=== PATIENT | female | born 1965 | race Caucasian/White ===

== ENCOUNTER 2024-09-05 22:00 | Emergency (ER) | payer OTHER, SELFPAY ==
[2024-09-05 22:04] VITALS: BMI 36.3
[2024-09-05 22:19] VITALS: BP 114/75; PULSE 89; RESP 20; TEMP 36.8; O2SAT 95
--- NOTE | 2024-09-05 23:38 | PD.EDRME ---
Rapid Medical Screening Exam RME Arrival date/time: 09/05/24 22:00 Chief Complaint: Abdominal Pain Time Seen by Provider: 09/05/24 23:10 Vital signs: Vital Signs Temperature 98.2 F 09/05/24 22:19 Pulse Rate 89 09/05/24 22:19 Respiratory Rate 20 09/05/24 22:19 Blood Pressure 114/75 09/05/24 22:19 Pulse Oximetry (%) 95 09/05/24 22:19 Oxygen Delivery Method Room Air 09/05/24 22:19 Vital signs reviewed by provider: Yes RME Narrative: 59-year-old female presents to the ED with complaint of waxing and waning right upper quadrant pain for the past 2 weeks. She indicates that she had a cholecystectomy approximately 30 years ago. She denies fever chills. The pain is exacerbated by eating. She denies any nausea, vomiting, or diarrhea but has had chronic constipation. She has a past medical history of bipolar disorder and dementia as well as a spontaneous splenic rupture which was repaired. Labs, urine, and abdominal ultrasound ordered. I have greeted and performed a focused initial assessment of this patient. A comprehensive ED assessment and evaluation of the patient, analysis of all test results, and completion of the medical decision making process will be conducted by additional ED providers.
[2024-09-06] LABS: Collection Type, Urine Clean Catch
--- NOTE | 2024-09-06 | XR_ITS ---
Examination: Abdomen sonogram, complete Date and time of exam: September 06, 2024, 0015 hours INDICATIONS: Right upper abdominal pain beginning one week ago. Technique: Multiple real-time grayscale transabdominal sonographic images of the abdomen have been obtained. Findings: Absent gallbladder Common bile duct 0.9 cm no stones Pancreas obscured by bowel gas Aorta not enlarged Hepatomegaly 20.8 cm with lobular contour fatty infiltration Normal hepatopedal portal venous flow Patent IVC Right kidney 9.8 cm cortex is 1.8 cm Kidney 9.1 cm cortically foreign 0.8 cm Moderate renal parenchymal scar formation Spleen 10.7 cm IMPRESSION: Absent gallbladder. Enlarged common bile duct 0.9 cm, clinical correlation advised, if biliary colic is a clinical consideration, suggest MRCP follow-up
[2024-09-06 00:02] LABS: Basophils % (Auto) 0 % (0-2.5); Eosinophils % (Auto) 0 % (0-10); Hematocrit 45.3 % (36.0-46.0); Hemoglobin 15.2 g/dL (12.0-16.0); Immature Granulocytes % (Auto) 1 % (0-0); Lymphocytes # (Auto) 0.3 Thou/mm3 (1.0-4.8); Lymphocytes % (Auto) 1 % (10-50); Mean Corpuscular HGB Conc 33.6 g/dl (31.0-37.0); Mean Corpuscular Hemoglobin 31.4 pg (25.0-35.0); Mean Corpuscular Volume 94 fL (80-100); Monocytes # (Auto) 0.6 Thou/mm3 (0.0-0.8); Monocytes % (Auto) 3 % (0-12); Neutrophils # (Auto) 21.1 Thou/mm3 (1.8-7.7); Neutrophils % (Auto) 95 % (37-80); Nucleated Red Blood Cell % 0 /100 WBC (0); Platelet Count 404 Thou/mm3 (140-440); RDW Standard Deviation 50.8 fL (36.4-46.3); Red Blood Count 4.84 Miln/mm3 (4.00-5.20); White Blood Count 22.2 Thou/mm3 (3.6-11.0)
[2024-09-06 00:21] LABS: Amorphous Crystals,Urine Present (Absent); Bacteria,Urine 4+; Bilirubin,Urine 1+ (Negative); Blood,Urine Negative (Negative); Calcium Oxalate Crystals,Urine 1+; Color,Urine Drk-Yellow (Lt Yel-Yel); Glucose, Urine Negative (Negative); Hyaline Casts,Urine < 1 /hpf (0-1); Ketones,Urine Trace (Negative); Leukocyte Esterase,Urine Positive (Negative); Nitrite,Urine Negative (Negative); PH,Urine 7.5 (5.0-7.0); Protein,Urine 1+ (Neg - Trace); RBC,Urine 9 /hpf (0-3); Specific Gravity,Urine 1.024 (1.001-1.035); Squamous Epithelial Cell,Urine 10 /hpf (0-5); Urobilinogen,Urine 12 mg/dL (0.0-1.0); WBC,Urine 12 /hpf (0-5)
[2024-09-06 00:24] LABS: Clarity,Urine Turbid (Clear/Hazy)
[2024-09-06 00:28] LABS: Alanine Aminotransferase 338 U/L (10-49); Albumin, Serum 4.7 gm/dL (3.4-4.8); Albumin/Globulin Ratio 1.6 (1.2-2.2); Alkaline Phosphatase 558 U/L (46-116); Amylase 34 U/L (30-118); Anion Gap 10 (7-16); Aspartate Amino Transferase 691 U/L (0-34); BUN/Creatinine Ratio 16 Ratio (12-20); Bilirubin,Total 3.1 mg/dL (0.3-1.2); Blood Urea Nitrogen 14 mg/dL (9-23); Calcium 9.5 mg/dL (8.3-10.6); Calcium (Corrected) 9.5 mg/dL (8.5-10.1); Carbon Dioxide 31.2 mMol/L (20.0-31.0); Chloride 101 mMol/L (98-107); Creatinine (Component) 0.9 mg/dL (0.6-1.3); Estimated Creatinine Clearance 68.6 mL/min (>60); Globulin 2.9 gm/dL (2.3-3.5); Glucose 176 mg/dL (74-106); Lipase 51 U/L (12-53); Osmolality,Calculated 287 (275-295); Sodium 142 mMol/L (136-145); Total Protein 7.6 gm/dL (5.7-8.2); eGFR > 60 See Note
[2024-09-06 01:24] VITALS: BP 147/86; PULSE 87; RESP 19; TEMP 36.7; O2SAT 95
--- NOTE | 2024-09-06 01:24 | XR_ITS ---
Examination: CT abdomen with intravenous contrast CT pelvis with intravenous contrast 2-D coronal reconstructions 2-D sagittal reconstructions Date and time of exam:September 06, 2024 0227 hours INDICATIONS: Sepsis alert. CTDI: vol (mGy) 13 DLP: (mGycm) 731 Technique: Multiple axial sections of the abdomen and pelvis have been obtained. 64 slice high-resolution scanner used. 3 mm axial sections have been obtained, post intravenous injection 60 cc Isovue 370 2-D sagittal, coronal reconstructions obtained. Low dose protocols were performed. One or more of the following dose reduction techniques were used; automated exposure control, adjustment of the mA and/or KV according to patient size, use of iterative reconstruction technique. Findings: Intrahepatic biliary tract dilatation Absent gallbladder Enlarged common hepatic duct at least 18 mm, suspicious for stones in the distal common bile duct No hydronephrosis No bowel obstruction Normal appendix Urinary bladder intact The osseous structures are intact IMPRESSION: Abnormal extrahepatic biliary tract dilatation, recommend MRCP follow-up to exclude stones in the distal common bile duct
--- NOTE | 2024-09-06 01:25 | PD.EDABDPN ---
ED Abdominal Pain RME/HPI General Chief Complaint: Abdominal Pain Stated complaint: RIGHT UPPER ABD PAIN FOR A COUPLE WEEKS Time seen by provider: 09/05/24 23:10 Arrival date/time: 09/05/24 22:00 RME / HPI RME / HPI narrative: 59-year-old female presents to the ED with complaint of waxing and waning right upper quadrant pain for the past 2 weeks. She indicates that she had a cholecystectomy approximately 30 years ago. She denies fever chills. The pain is exacerbated by eating. She denies any nausea, vomiting, or diarrhea but has had chronic constipation. She has a past medical history of bipolar disorder and dementia as well as a spontaneous splenic rupture which was repaired. Labs, urine, and abdominal ultrasound ordered. I have greeted and performed a focused initial assessment of this patient. A comprehensive ED assessment and evaluation of the patient, analysis of all test results, and completion of the medical decision making process will be conducted by additional ED providers. DR. HERNANDEZ MAIN ED EVALUATION: 59 y/o female with Hx of Gall Bladder Disease presents to ED c/o RUQ abdominal pain x 2 weeks. Patient denies fever, chills, nausea, vomiting, diarrhea, constipation, or any other associated symptoms or aggravating factors. No modifying factors, no radiation, no migration. No other pain reported overall. Related Data Home Medications ?Medication ?Instructions ?Recorded ?Confirmed lamotrigine 200 mg tablet 200 mg PO BID #0 tabs 09/13/15 10/19/23 (Lamictal) oxybutynin chloride 5 mg tablet 5 mg PO QDAY #0 tabs 09/13/15 10/19/23 olanzapine 15 mg-samidorphan 10 mg 1 tab PO HS 05/10/21 10/19/23 tablet (Lybalvi) levothyroxine 88 mcg tablet 88 mcg PO QDAY 05/12/21 10/19/23 gabapentin 300 mg capsule 300 mg PO BID 08/08/21 10/19/23 gabapentin 300 mg capsule 600 mg PO HS 08/08/21 10/19/23 memantine 5 mg tablet 5 mg PO BID 10/03/23 10/19/23 pramipexole 1.5 mg tablet,extended 1.5 mg PO QDAY 10/03/23 10/19/23 release 24 hr furosemide 20 mg tablet (Lasix) 20 mg PO DAILY 10/19/23 10/19/23 potassium chloride 10 mEq 10 meq PO DAILY 10/19/23 10/19/23 tablet,extended release (Klor-Con) Allergies Allergy/AdvReac Type Severity Reaction Status Date / Time No Known Allergies Allergy Verified 09/05/24 22:04 Review of Systems Review of Systems Systems Reviewed: All systems reviewed, normal except as documented Narrative Review of Systems: Gen: No fever, no chills, no weight loss EYES: No discharge, no visual changes, no pain HEENT: No ear pain, no congestion, no sore throat PULM: No shortness of breath, no cough, no congestion CV: No chest pain, no dyspnea on exertion, no palpitations GI: No nausea, no vomiting, no diarrhea, RUQ pain, no constipation : No frequency, no urgency, no dysuria Musc/skel: No joint pain, no back pain Skin: No rash. Psyc: No hallucinations, no depression Heme/Lymph: No easy bleeding or bruising tendencies Neuro: No weakness, no headache Past Medical History Past Medical History CARDIAC: Positive Edema and Hypertension RESPIRATORY: Positive Asthma and Bronchitis GASTROINTESTINAL: Positive Gastrointestinal Disorders, Gall Bladder Disease and Obesity ENDOCRINE: Positive Hypothyroidism PSYCHO/SOCIAL: Positive Schizophrenia, Bipolar Disorder and Anxiety Family History FAMILY HISTORY: Positive Family Cardiac Disorders Surgical History SURGICAL: Positive Angiogram (COMING SOON), Eye Surgery (CATARACTS), Abdominal Surgery, Joint Replacement and Hysterectomy ED Exam Narrative Physical exam: GENERAL APPEARANCE: alert and oriented x 4, well-developed, well-nourished, no acute distress VITALS: All vitals were reviewed and the pulse ox is 95% on room air, which is normal according to my interpretation. HEENT: Normocephalic, atraumatic; pupils equal, round, reactive to light; EOMI; mucous membranes pink, moist; oropharynx clear NECK: Supple LUNGS: CTABL; no wheezes, no rales, no rhonchi HEART: Regular rate, regular rhythm; normal S1, S2; no murmurs ABDOMEN: non distended; normal BS; soft, RUQ tenderness, no guarding, no rebound; no masses, no organomegaly, no hernia BACK: no CVA tenderness EXTREMITIES: atraumatic; no edema NEUROLOGIC: awake; alert and oriented x4; cranial nerves II-XII grossly intact; no focal sensory or motor deficits PSYCHIATRIC: appropriate mood and affect SKIN: warm, dry, normal color; no rashes Course Course Course Narrative: 0122: Zosyn ordered. 0124: CT Abdomen/Pelvis with Contrast Sepsis Protocol. 0223: MRCP ordered. 0224: MRI ordered. Quality Measures none Orders Category Date Time Status CT Screening NOW Care 09/06/24 01:24 Active MRI Screening NOW Care 09/06/24 02:24 Active NPO STAT Care 09/05/24 23:[address] abd pel w con SEPSIS SONIA Stat Exams 09/06/24 01:24 Taken MR MRCP Stat Exams 09/06/24 Ordered US abdomen Stat Exams 09/06/24 00:00 Taken Amylase Stat Lab 09/05/24 23:53 Completed Blood Culture (Lab) Stat Lab 09/06/24 04:05 Ordered CBC Stat Lab 09/05/24 23:53 Completed Comprehensive Metabolic Panel Stat Lab 09/05/24 23:53 Completed Lactate (Lactic Acid) Stat Lab 09/06/24 04:05 Ordered Lipase Stat Lab 09/05/24 23:53 Completed Procalcitonin Stat Lab 09/06/24 04:05 Ordered Urinalysis Stat Lab 09/05/24 23:50 Completed Piper/Tazo Inj [Zosyn Inj] 3.375 gm Med 09/06/24 01:30 Discontinued SODIUM CHLORIDE 0.9% (Popper) [Ns 0.9% (P)] 50 ml IV X1 Sodium Chloride 0.9% 1000 ml [Ns] 1,000 ml Med 09/06/24 01:23 Discontinued IV 999 mls/hr Vital Signs Vital signs: Vital Signs Temperature 98.2 F 09/05/24 22:19 Pulse Rate 89 09/05/24 22:19 Respiratory Rate 20 09/05/24 22:19 Blood Pressure 114/75 09/05/24 22:19 Pulse Oximetry (%) 95 09/05/24 22:19 Oxygen Delivery Method Room Air 09/05/24 22:19 Abdominal Pain MDM MDM Narrative MDM Narrative:: Scribe Attestation: I, Kassandra Mcadams, am scribing for and in the presence of Dr. Hernandez. Provider Notation: Although this document has been carefully reviewed, there may still be some phonetic and other typographical errors. These errors are purely grammatical due to imperfections in the software program and should not be construed in any way to compromise the substance of the patient's medical care during this visit 0600: Care assumed by Dr. Bill (emergency physician). Past medical, surgical, social and family history reviewed. Vitals and home medications reviewed. Results and treatment plan discussed. They will assume the care of the patient at this time and will follow the patient, pending MRCP. Patient data External records reviewed:: [facility] previous records Clinical information provided by:: patient Social determinants that could affect healthcare access:: none Patient has the following chronic illnesses:: Edema, Hypertension, Asthma, Bronchitis, Gall Bladder Disease, Obesity, Hypothyroidism, Schizophrenia, Bipolar Disorder and Anxiety. How is presenting disease/condition affected by chronic disease/condition?: exacerbated by Evaluation data The following diagnostics were reviewed and interpreted by me:: lab results (AST 691 U/L, Urine bacteria 4+, Amorphous crystals present, Calcium oxalate crystal 1+, Urine WBC 12/hpf, Urine RBC 9/hpf, Urine Squamous Epithelial cells 10/hpf) and radiology exam(s) Lab and/or radiology exams considered but not ordered:: None. Interpretation Summary: RADIOLOGY I have personally reviewed the results below. Additionally, I agree with the radiologist's interpretation. Abdomen/Pelvis CT: Pending official radiology report. Abdomen US: Pending official radiology report. Medications / Prescriptions Medications or Prescriptions considered but not ordered:: None. Medication administrations:: Medication Administration History Discontinued Medications Piperacillin Sod/Tazobactam (Sod 3.375 gm/ Sodium Chloride) 50 mls @ 100 mls/hr IV X1 ONE Stop: 09/06/24 01:59 Last Infusion: 09/06/24 03:21 Dose: Infused Documented By: Admin: 09/06/24 02:15 Dose: 100 mls/hr Documented By: EE Sodium Chloride (Ns) 1,000 mls @ 999 mls/hr IV .Q1H1M ONE Stop: 09/06/24 02:23 Last Infusion: 09/06/24 04:53 Dose: Infused Documented By: Admin: 09/06/24 02:16 Dose: 999 mls/hr Documented By: NARCISA See above if any. Consultations Consultation(s) initiated? (list below): No Diagnosis Differential diagnosis abdominal pain: abdominal pain, acute appendicitis, constipation, diverticulitis, gastroenteritis, pancreatitis and other (UTI) Most likely diagnosis given after review of the tests above:: Transaminitis, Leukocytosis, Dilated common bile duct. Admission Indicated Admission indicated?: not indicated (Pending final disposition.) Explain why admission is indicated or not indicated:: Pending MRCP. Admission Request Was there a request for admission?: No Disposition Plan Disposition Plan: other (specify) (Disposition pending oncoming provider.) Discharge Plan Prescriptions/Referrals Prescriptions/Med Rec: No Action lamotrigine [Lamictal] 200 MG tablet 200 mg PO BID Qty: 0 oxybutynin chloride 5 MG tablet 5 mg PO QDAY Qty: 0 Lybalvi 15-10 mg Tablet 1 tab PO HS levothyroxine 88 mcg Tablet 88 mcg PO QDAY gabapentin 300 mg Capsule 600 mg PO HS Rx Instructions: 1 capsule in morning, then 1 capsule in afternoon, then 2 at night gabapentin 300 mg Capsule 300 mg PO BID Rx Instructions: 1 in the morning and 1 in the afternoon, then 2 at night potassium chloride [Klor-Con 10] 10 mEq tablet extended release 10 meq PO DAILY Patient Comments: TAKE 1 TABLET BY MOUTH EVERY DAY WITH FOOD furosemide [Lasix] 20 mg tablet 20 mg PO DAILY Patient Comments: TAKE 1 TABLET BY MOUTH EVERY DAY memantine 5 mg Tablet 5 mg PO BID pramipexole 1.5 mg Tablet Extended Release 24 Hr 1.5 mg PO QDAY Referrals: Sandra Hutchison, [facility] [Primary Care Provider] - In 1 week Problem List Clinical Impression: Transaminitis, Common bile duct dilation, Leukocytosis Patient/Caregiver Discharge Instructions Print Language: Azeri
[2024-09-06] MEDS: PIPER/TAZO INJ 3.375 GM in SODIUM CHLORIDE 0.9% (Popper) 50 ML IV (02:15)
[2024-09-06] MEDS: SODIUM CHLORIDE 0.9% 1000 ML 1,000 ML 999 ML IV (02:16)
--- NOTE | 2024-09-06 02:18 | PRELIM_ITS ---
Ultrasound Abdomen with doppler and wave doppler spectral analysis. September 06, 2024 at 0015 hours Clinical history: Right upper quadrant abdominal pain. Technique: Grayscale and color flow images of the abdomen are provided. Hepatic and portal veins were also imaged with color flow images. Comparison: Compared with the prior ultrasound study dated September 06, 2024. Findings: The liver is enlarged and demonstrates increased echogenicity. No intrahepatic biliary ductal dilatation. The gallbladder is not visualized. The common bile duct is dilated in caliber at 9.3 mm. No free fluid is demonstrated on the submitted images. The pancreas is unremarkable to the extent visualized. The right kidney measures 9.8 cm. The left kidney measures 9.1 cm. There is no hydronephrosis and the corticomedullary differentiation is maintained. The spleen is normal measuring 10.7 cm in length. The abdominal aorta and inferior vena cava to the extent visualized are within normal limits. The portal vein is patent with hepatopetal flow with normal wave Doppler spectral analysis. Impression: 1. The gallbladder is not visualized, surgically absent versus contracted. Please, correlate clinically. 2. Dilated CBD, if choledocholithiasis is clinically suspected consider correlation with MRCP. 3. Hepatomegaly associated with liver steatosis is suspicious for steatohepatitis. Report Electronically Signed By: Arnie Mae 09/06/2024 2:17:58 AM [EST]
[2024-09-06 03:00] VITALS: BP 152/85; PULSE 87; RESP 16; TEMP 37; O2SAT 96
--- NOTE | 2024-09-06 03:51 | PRELIM_ITS ---
CT scan of the abdomen and pelvis with intravenous contrast (axial sections with sagittal and coronal reformats) September 06, 2024 0222 hours Clinical History: RUQ abdominal pain Comparison: Reference is made to the prior report dated 10/19/2023. Findings: There is heterogeneous attenuation of the lung bases. There is fatty infiltration of liver with mild hepatomegaly .The pancreas, spleen and adrenals are unremarkable. Gallbladder is surgically absent. The common bile duct is dilated measuring 1.8 cm. There is ill-defined hyperdensity measuring 8 mm in the distal CBD. No evidence of radiodense calculus within the common bile duct. There is perisplenic collection measuring 4.7 cm . There is bilateral renal cortical scarring. No evidence of bowel obstruction. A moderate amount of fecal material is present in the colon. The appendix is within normal limits (coronal image # [id number]) . There is no mesenteric or retroperitoneal adenopathy. The aorta and its branches demonstrate atheromatous calcification without evidence of aneurysm. The urinary bladder is unremarkable. There is no free fluid or free air.Degenerative changes are identified in the spine. There are posterior operative changes in the spinous processes at L2-L3 and L3-L4 levels. Impression: Dilated common bile duct with distal intraluminal ill-defined hyperdensity, recommend MRCP for further evaluation as clinically indicated. Fatty infiltration of liver with mild hepatomegaly. Constipation . Other findings as described above. Report Electronically Signed By: Walter Lemus 09/06/2024 3:50:47 AM [EST]
[2024-09-06 06:17] VITALS: BP 157/92; PULSE 75; RESP 16; TEMP 36.7; O2SAT 95
--- NOTE | 2024-09-06 06:44 | EDNOTE_ITS ---
Emergency Room Addendum <Yvette Encinas - Last Filed: 09/06/24 12:03> Addendum Narrative: 0600: Care assumed from Dr. Hernandez (emergency physician). Past medical, surgical, social and family history reviewed. Vitals and home medications reviewed. Results and treatment plan discussed. I will assume the care of the patient at this time and will follow the patient, pending CT, US, and MRCP results. 0920: I spoke with the Transfer Nurse, transfer process initiated. MRCP is unavailable at current hospital and transfer is needed to complete MRCP. RADIOLOGY: Ordering Physician: Date of Service: Procedure(s): Accession Number(s): cc: ~ Ultrasound Abdomen with doppler and wave doppler spectral analysis. September 06, 2024 at 0015 hours Clinical history: Right upper quadrant abdominal pain. Technique: Grayscale and color flow images of the abdomen are provided. Hepatic and portal veins were also imaged with color flow images. Comparison: Compared with the prior ultrasound study dated September 06, 2024. Findings: The liver is enlarged and demonstrates increased echogenicity. No intrahepatic biliary ductal dilatation. The gallbladder is not visualized. The common bile duct is dilated in caliber at 9.3 mm. No free fluid is demonstrated on the submitted images. The pancreas is unremarkable to the extent visualized. The right kidney measures 9.8 cm. The left kidney measures 9.1 cm. There is no hydronephrosis and the corticomedullary differentiation is maintained. The spleen is normal measuring 10.7 cm in length. The abdominal aorta and inferior vena cava to the extent visualized are within normal limits. The portal vein is patent with hepatopetal flow with normal wave Doppler spectral analysis. Impression: 1. The gallbladder is not visualized, surgically absent versus contracted. Please, correlate clinically. 2. Dilated CBD, if choledocholithiasis is clinically suspected consider correlation with MRCP. 3. Hepatomegaly associated with liver steatosis is suspicious for steatohepatitis. Report Electronically Signed By: Arnie Mae 09/06/2024 2:17:58 AM [EST] ========= Ordering Physician: Date of Service: Procedure(s): Accession Number(s): cc: ~ CT scan of the abdomen and pelvis with intravenous contrast (axial sections with sagittal and coronal reformats) September 06, 2024 0222 hours Clinical History: RUQ abdominal pain Comparison: Reference is made to the prior report dated 10/19/2023. Findings: There is heterogeneous attenuation of the lung bases. There is fatty infiltration of liver with mild hepatomegaly .The pancreas, spleen and adrenals are unremarkable. Gallbladder is surgically absent. The common bile duct is dilated measuring 1.8 cm. There is ill-defined hyperdensity measuring 8 mm in the distal CBD. No evidence of radiodense calculus within the common bile duct. There is perisplenic collection measuring 4.7 cm . There is bilateral renal cortical scarring. No evidence of bowel obstruction. A moderate amount of fecal material is present in the colon. The appendix is within normal limits (coronal image # [id number]) . There is no mesenteric or retroperitoneal adenopathy. The aorta and its branches demonstrate atheromatous calcification without evidence of aneurysm. The urinary bladder is unremarkable. There is no free fluid or free air.Degenerative changes are identified in the spine. There are posterior operative changes in the spinous processes at L2-L3 and L3-L4 levels. Impression: Dilated common bile duct with distal intraluminal ill-defined hyperdensity, recommend MRCP for further evaluation as clinically indicated. Fatty infiltration of liver with mild hepatomegaly. Constipation . Other findings as described above. Report Electronically Signed By: Walter Lemus 09/06/2024 3:50:47 AM [EST] <Shamikathelma Franco - Last Filed: 09/06/24 11:58> Addendum Narrative: 0600: Care assumed from Dr. Hernandez (emergency physician). Past medical, surgical, social and family history reviewed. Vitals and home medications reviewed. Results and treatment plan discussed. I will assume the care of the patient at this time and will follow the patient, pending CT, US, and MRCP results. 0920: I spoke with the Transfer Nurse, transfer process initiated. MRCP is unavailable at current hospital and transfer is needed to complete MRCP. 1138: Transfer nurse from [facility] called that GI specialist Dr. Silverio is not available right now but will call soon. 1149: Discussed test HPI, PMHx, lab, radiology results and/or management with GI specialist Dr. Silverio From [facility]. GI specialist Dr. Silverio accepts the patient for transfer. Diagnoses: - Common bile duct dilation - Transaminitis - Leukocytosis - Cholangitis RADIOLOGY: Ordering Physician: Date of Service: Procedure(s): Accession Number(s): cc: ~ Ultrasound Abdomen with doppler and wave doppler spectral analysis. September 06, 2024 at 0015 hours Clinical history: Right upper quadrant abdominal pain. Technique: Grayscale and color flow images of the abdomen are provided. Hepatic and portal veins were also imaged with color flow images. Comparison: Compared with the prior ultrasound study dated September 06, 2024. Findings: The liver is enlarged and demonstrates increased echogenicity. No intrahepatic biliary ductal dilatation. The gallbladder is not visualized. The common bile duct is dilated in caliber at 9.3 mm. No free fluid is demonstrated on the submitted images. The pancreas is unremarkable to the extent visualized. The right kidney measures 9.8 cm. The left kidney measures 9.1 cm. There is no hydronephrosis and the corticomedullary differentiation is maintained. The spleen is normal measuring 10.7 cm in length. The abdominal aorta and inferior vena cava to the extent visualized are within normal limits. The portal vein is patent with hepatopetal flow with normal wave Doppler spectral analysis. Impression: 1. The gallbladder is not visualized, surgically absent versus contracted. Please, correlate clinically. 2. Dilated CBD, if choledocholithiasis is clinically suspected consider correlation with MRCP. 3. Hepatomegaly associated with liver steatosis is suspicious for steatohepatitis. Report Electronically Signed By: Arnie Mae 09/06/2024 2:17:58 AM [EST] Ordering Physician: Date of Service: Procedure(s): Accession Number(s): cc: ~ CT scan of the abdomen and pelvis with intravenous contrast (axial sections with sagittal and coronal reformats) September 06, 2024 0222 hours Clinical History: RUQ abdominal pain Comparison: Reference is made to the prior report dated 10/19/2023. Findings: There is heterogeneous attenuation of the lung bases. There is fatty infiltration of liver with mild hepatomegaly .The pancreas, spleen and adrenals are unremarkable. Gallbladder is surgically absent. The common bile duct is dilated measuring 1.8 cm. There is ill-defined hyperdensity measuring 8 mm in the distal CBD. No evidence of radiodense calculus within the common bile duct. There is perisplenic collection measuring 4.7 cm . There is bi lateral renal cortical scarring. No evidence of bowel obstruction. A moderate amount of fecal material is present in the colon. The appendix is within normal limits (coronal image # [id number]) . There is no mesenteric or retroperitoneal adenopathy. The aorta and its branches demonstrate atheromatous calcification without evidence of aneurysm. The urinary bladder is unremarkable. There is no free fluid or free air.Degenerative changes are identified in the spine. There are posterior operative changes in the spinous processes at L2-L3 and L3-L4 levels. Impression: Dilated common bile duct with distal intraluminal ill-defined hyperdensity, recommend MRCP for further evaluation as clinically indicated. Fatty infiltration of liver with mild hepatomegaly. Constipation . Other findings as described above. Report Electronically Signed By: Walter Lemus 09/06/2024 3:50:47 AM [EST]
[2024-09-06 06:57] LABS: Procalcitonin 2.64 ng/ml (0.0-0.49)
--- NOTE | 2024-09-06 07:20 | PC.NURSE ---
Patient laying in bed and responds appropriately. Patient complaining of pain and provider notified with verbal orders given for 4mg morphine IV.
[2024-09-06] MEDS: MORPHINE SULF INJ 10 MG/ML VIAL 4 MG IVP ×2 (07:22→09:06)
[2024-09-06 08:27] LABS: Lactate (Lactic Acid) 1.8 mMol/L (0.4-2.0)
[2024-09-06 08:28] VITALS: BP 150/78; PULSE 74; RESP 19; TEMP 36.8; O2SAT 94
--- NOTE | 2024-09-06 08:33 | PC.NURSE ---
PATIENT STATES ABD PAIN HAS GOTTEN WORSE 01/13. ER PROVIDER NOTIFIED AND VERBAL ORDER FOR 4MG IV GIVEN.
[2024-09-06] MEDS: ONDANSETRON INJ 2 MG/ML INJ 2 ML 4 MG IV (08:54)
--- NOTE | 2024-09-06 09:59 | PC.CC ---
Addendum entered by Henry Anand RN 09/06/24 13:02: 1300 Called [facility], spoke to Sabrina and informed picking machine operator time is 1345. Addendum entered by Henry Anand RN 09/06/24 13:00: 1256 sent paperwork to [facility] through [employer]. [facility] spoke to Neela and setup the transport. supervisor bleach plant time is 1345. 1245 transfer packet is complete with CD inside including all signatures. Transfer packet given to bedside nurse and number to call for report is on tracker. Addendum entered by Henry Anand RN 09/06/24 11:55: 1151 received call from Sabrina at [facility] that pt is accepted for ED to ED transfer. Accepted by Dr. Silverio. Call report at [phone]. Addendum entered by Henry Anand RN 09/06/24 11:40: 1134 received call from Sabrina at [facility], she stated she wants to speak with Dr. Bill. Conference call connected. Addendum entered by Henry Anand RN 09/06/24 10:10: 1010 [facility] spoke to Sabrina and initiated the transfer. Original Note: 1000 clinicals faxed to [facility]. [address] Bill that pt needs to be transferred for ERCP for enlarged CBD-0.9cm needs GI services. MRCP is unavailable today.
[2024-09-06 11:39] VITALS: BP 139/72; PULSE 87; RESP 18; TEMP 37.9; O2SAT 97
[2024-09-06 11:52] VITALS: TEMP 37.9
[2024-09-06] MEDS: ACETAMINOPHEN 500 MG TABLET 1000 MG PO (11:52)
[2024-09-06] MEDS: HYDROmorphone INJ 2 MG/ML VIAL 0.5 MG IVP (11:53)
[2024-09-06] MEDS: PIPER/TAZO 3.375 GM PREMIX 3.375 GM/50 ML BAG IV (12:28)
--- NOTE | 2024-09-06 13:27 | PC.NURSE ---
MELISSA BREAKING MACHINE OPERATOR AT BEDSIDE; SBAR REPORT GIVEN. BREAKING MACHINE OPERATOR TO TRANSPORT PT TO [facility] AT THIS TIME.
--- NOTE | 2024-09-06 13:30 | PC.NURSE ---
SPOKE TO ELI JACOBS FROM [facility] FOR RN-RN SBAR REPORT AT THIS TIME.
== END 2024-09-06 13:28 | disposition short-term general hospital (02) ==
PROVIDERS: Emergency Medicine; Physician Assistant; Emergency Provider Emergency Medicine; PCP Nurse Practitioner Family
DX: K83.09 Other cholangitis (principal); K76.0 Fatty (change of) liver, not elsewhere classified; Z75.1 Person awaiting admission to adequate facility elsewhere
CPT/HCPCS: 36415; 74177; 76700; 80053; 81001; 82150; 83605; 83690; 84145; 85025; 87040; 96361; 96365; 96367; 99285; A4649; J1171; J2270; J2405; J2543; J7030; Q9967; A9270

== ENCOUNTER → 2025-05-03 | Outpatient (CLI) | payer OTHER, SELFPAY ==
--- NOTE | 2025-05-03 16:15 | XR_ITS ---
Examination: Screening digital mammography, bilateral Computer aided detection 3-D breast Tomosynthesis, bilateral Date and time of exam: 05/03/2025, 4:05 p.m. Comparisons: 07/09/2023 Indications: Screening Technique: Nonmagnified MLO, CC views of the breasts to been obtained, reconstructed from 3-D Tomosynthesis images. R2 computer aided detection program utilized for evaluation of suspicious masses and/or abnormal calcifications. 3-D Tomosynthesis images obtained. Technologist: Findings: There are scattered areas of fibroglandular density. No evidence of abnormal masses or suspicious calcifications. Impression: BI-RADS category 1: Negative findings (within normal) Recommend 1 year follow-up mammogram
== END | disposition home or self-care (01) ==
PROVIDERS: PCP Nurse Practitioner Family; Referring Provider Nurse Practitioner Family; Visit Provider Nurse Practitioner Family
DX: Z12.31 Encounter for screening mammogram for malignant neoplasm of breast (principal); R92.313 Mammographic fatty tissue density, bilateral breasts
CPT/HCPCS: 77063; 77067